=== PATIENT | male | born 1960 | race Caucasian/White ===

== ENCOUNTER 2019-05-28 11:30 | Inpatient (IN) | payer OTHER ==
[~2019-05-28] VITALS: Ht 185.4 cm; Wt 127.0 kg
[2019-06-11] MEDS ORDERED: OXYC1TAB9 PO (12:10)
[2019-06-11] MEDS ORDERED: RECTICARE30 GM TOP (12:10)
== END 2019-06-11 13:01 | disposition home or self-care (01) | DRG 331 ==
LOC: SURH 06-10 08:50 → O/R 06-10 08:50 → SURG 06-10 11:00 → SURH 06-10 15:44 → SURG 06-10 20:15 → SURH 06-11 13:01
PROVIDERS: ADMIT Surgery
PROC: 3E0T3BZ Introduction of Anesthetic Agent into Peripheral Nerves and Plexi, Percutaneous Approach (ICD-10-PCS; 2019-06-10)
PROC: 0JQC0ZZ Repair Pelvic Region Subcutaneous Tissue and Fascia, Open Approach (ICD-10-PCS; principal; 2019-06-10 20:15)
DX: K62.3 Rectal prolapse (principal); K62.1 Rectal polyp; I10 Essential (primary) hypertension